=== PATIENT | female | born 1965 | race Caucasian/White ===

== ENCOUNTER 2023-07-11 15:23 | Emergency (ER) | payer BC ==
[2023-07-11] MEDS ORDERED: Lidocaine 2% Viscous Solution 15 ML UD PO ONE (16:52)
[2023-07-11] MEDS ORDERED: Benzocaine 20% Topical Spray UD MUCMEM ONE (16:52)
[2023-07-11 17:23] VITALS: BP 110/75; PULSE 77
== END 2023-07-11 17:22 | disposition home or self-care (01) ==
LOC: MW.ED 15:23
DX: K04.7 Periapical abscess without sinus (principal); I10 Essential (primary) hypertension; E03.9 Hypothyroidism, unspecified; Z90.49 Acquired absence of other specified parts of digestive tract; Z79.899 Other long term (current) drug therapy
CPT/HCPCS: 99282; A9270; 99283